=== PATIENT | female | born 1990 | race Caucasian/White ===

== ENCOUNTER 2018-02-02 05:10 | Inpatient (IN) | payer OTHER ==
[2018-02-02] MEDS ORDERED: AMPICILLIN 2 GM/NS (PMX) 100 ML (05:46)
[2018-02-02] MEDS: AMPICILLIN 2 GM/NS (PMX) 100 ML IV (05:57)
[2018-02-02] MEDS: LACTATED RINGER'S 1,000 ML IV* ×4 (05:57→16:30)
[2018-02-02 05:58] LABS: ADD MAN DIFF? NO
[2018-02-02] MEDS ORDERED: MISOPROSTOL 200 MCG TAB PR ×2 (06:00→16:30)
[2018-02-02] MEDS ORDERED: IBUPROFEN 600 MG TAB PO (06:00)
[2018-02-02] MEDS ORDERED: LIDOCAINE 1% (MPF) 30 ML INJ INJ (06:00)
[2018-02-02] MEDS ORDERED: OXYTOCIN 30 UNITS/LR 500 ML IV ×2 (06:00→16:30)
[2018-02-02] MEDS ORDERED: METHYLERGONOVINE 0.2 MG INJ IM ×2 (06:00→16:30)
[2018-02-02] MEDS ORDERED: CARBOPROST 250 MCG INJ IM ×2 (06:00→16:30)
[2018-02-02] MEDS ORDERED: BUTORPHANOL 2 MG INJ IV (06:00)
[2018-02-02 06:01] LABS: WHITE BLOOD COUNT 10.8 10^3/ul (4.8-10.8)
[2018-02-02 06:01] LABS: BASOPHILS % 0.3 % (0.0-2.0); EOSINOPHILS % 0.3 % (0.0-7.0); HEMATOCRIT 38.1 % (37.0-47.0); HEMOGLOBIN 13.1 g/dl (12.0-16.0); LYMPHOCYTES # 1.8 10^3/ul (0.8-2.9); LYMPHOCYTES % 16.7 % (15.0-51.0); MEAN CORPUSCULAR HEMOGLOBIN 33.5 pg (29.0-33.0); MEAN CORPUSCULAR HGB CONC 34.4 g/dl (32.0-37.0); MEAN CORPUSCULAR VOLUME 97.4 fl (82.0-101.0); MEAN PLATELET VOLUME 11.1 fl (7.4-10.4); MONOCYTE # 0.4 10^3/ul (0.3-0.9); NEUTROPHIL # 8.4 10^3/ul (1.6-7.5); NEUTROPHILS % 77.8 % (39.0-77.0); PLATELET COUNT 175 10^3/UL (140-415); RED BLOOD COUNT 3.91 10^6/ul (4.20-5.40)
[2018-02-02 06:19] LABS: INR 0.97
[2018-02-02 06:20] LABS: PARTIAL THROMBOPLASTIN TIME 30.3 Sec (25.0-35.0)
[2018-02-02] MEDS ORDERED: ONDANSETRON 4 MG INJ IV (06:30)
[2018-02-02] MEDS ORDERED: DIPHENHYDRAMINE 50 MG INJ IV (06:30)
[2018-02-02] MEDS ORDERED: FENTAnyl 2MCG/ML-ROPIV 0.2% 100 ML BAG EPI (06:30)
[2018-02-02] MEDS ORDERED: NALOXONE (0.4 MG/ML) INJ IV (06:30)
[2018-02-02] MEDS ORDERED: FENTAnyl 2MCG/ML-ROPIV 0.2% 100 ML (06:33)
[2018-02-02 06:50] LABS: HEPATITIS B SURFACE ANTIGEN NEGATIVE (NEGATIVE)
[2018-02-02] MEDS: AMPICILLIN 1 GM/NS (PMX) 50 ML IV ×2 (09:48→14:00)
[2018-02-02] MEDS: OXYTOCIN 30 UNITS/LR 500 ML IV ×2 (14:13→14:32)
[2018-02-02] MEDS: AZITHROMYCIN 250 MG in SOD CHLORIDE 0.9% 250 ML IVPB (15:10)
[2018-02-02] MEDS ORDERED: BENZOCAINE 20% 56 ML SPRAY TOP (16:30)
[2018-02-02] MEDS ORDERED: DIBUCAINE 1% 30 GM OINT PR (16:30)
[2018-02-02] MEDS ORDERED: ZOLPIDEM 5 MG TAB PO (16:30)
[2018-02-02] MEDS ORDERED: LANOLIN 7 GM TUBE TOP (16:30)
[2018-02-02] MEDS ORDERED: HYDROCODONE/APAP (5/325) TAB PO ×2 (16:30)
[2018-02-02] MEDS ORDERED: WITCH HAZEL/GLYCERIN PAD PR (16:30)
[2018-02-02] MEDS: IBUPROFEN 600 MG TAB PO ×2 (17:43→23:33)
[2018-02-02] MEDS: CEPHALEXIN 500 MG CAP PO ×2 (17:43→23:33)
[2018-02-02] MEDS: SENNA/DOCUSATE NA (8.6MG/50MG) TAB PO (21:34)
[2018-02-02] MEDS: MAGNESIUM HYDROXIDE 30ML CUP PO (21:34)
[2018-02-02 22:05] LABS: RAPID PLASMA REAGIN NONREACTIVE (NR)
[2018-02-03] MEDS: LACTATED RINGER'S 1,000 ML IV* (00:13)
[2018-02-03] MEDS: CEPHALEXIN 500 MG CAP PO ×3 (05:53→18:16)
[2018-02-03] MEDS: IBUPROFEN 600 MG TAB PO ×3 (05:53→18:16)
[2018-02-03 08:13] LABS: ADD MAN DIFF? NO
[2018-02-03 08:17] LABS: BASOPHILS % 0.4 % (0.0-2.0); EOSINOPHILS # 0.1 10^3/ul (0.0-0.5); EOSINOPHILS % 0.5 % (0.0-7.0); HEMATOCRIT 35.1 % (37.0-47.0); HEMOGLOBIN 11.5 g/dl (12.0-16.0); LYMPHOCYTES # 2.7 10^3/ul (0.8-2.9); LYMPHOCYTES % 25.8 % (15.0-51.0); MEAN CORPUSCULAR HEMOGLOBIN 32.6 pg (29.0-33.0); MEAN CORPUSCULAR HGB CONC 32.8 g/dl (32.0-37.0); MEAN CORPUSCULAR VOLUME 99.4 fl (82.0-101.0); MEAN PLATELET VOLUME 10.8 fl (7.4-10.4); MONOCYTE # 0.5 10^3/ul (0.3-0.9); MONOCYTES % 4.9 % (0.0-11.0); NEUTROPHIL # 7.1 10^3/ul (1.6-7.5); NEUTROPHILS % 67.5 % (39.0-77.0); PLATELET COUNT 161 10^3/UL (140-415); RED BLOOD COUNT 3.53 10^6/ul (4.20-5.40); RED CELL DISTRIBUTION WIDTH 13.3 % (11.5-14.5)
[2018-02-03 08:17] LABS: WHITE BLOOD COUNT 10.5 10^3/ul (4.8-10.8)
[2018-02-03] MEDS: SENNA/DOCUSATE NA (8.6MG/50MG) TAB PO ×2 (09:00→21:00)
[2018-02-03] MEDS: MAGNESIUM HYDROXIDE 30ML CUP PO ×2 (09:00→21:00)
[2018-02-04] MEDS: CEPHALEXIN 500 MG CAP PO ×3 (00:11→12:42)
[2018-02-04] MEDS: IBUPROFEN 600 MG TAB PO ×3 (00:11→12:42)
[2018-02-04] MEDS: MAGNESIUM HYDROXIDE 30ML CUP PO (09:00)
[2018-02-04] MEDS: DIPHTH/TET/ACEL PERTUSS (ADULT) 0.5 ML VIAL IM* (09:00)
[2018-02-04] MEDS: VARICELLA VACCINE LIVE/PF 1,350 UNIT/0.5 ML ML SC* (09:00)
[2018-02-04] MEDS: MEASLES,MUMPS,RUBELLA VACCINE INJ SC* (09:00)
[2018-02-04] MEDS: SENNA/DOCUSATE NA (8.6MG/50MG) TAB PO (09:00)
== END 2018-02-04 15:49 | disposition home or self-care (01) | DRG 775 ==
LOC: OBT 05:10 → L-D 05:10 → OBT 05:20 → L-D 05:20 → PP1 16:20
PROVIDERS: Obstetrics & Gynecology
PROC: 10E0XZZ Delivery of Products of Conception, External Approach (ICD-10-PCS; principal; 2018-02-02)
DX: O80 Encounter for full-term uncomplicated delivery (principal); Z3A.39 39 weeks gestation of pregnancy; Z37.0 Single live birth
CPT/HCPCS: 62319; 85025; 85610; 85730; 86592; 86850; 86900; 86901; 87340